=== PATIENT | male | born 1990 | race Caucasian/White ===

== ENCOUNTER 2016-08-27 19:19 | Emergency (ER) | payer OTHER ==
--- NOTE | ~2016-08-27 | EKG ---
PATIENT: GERARDO GONZALEZ UNIT #: [id number] Ventricular Rate: 121 BPM Atrial Rate: 121 BPM P-R Interval: 126 ms QRS Duration: 80 ms Q-T Interval: 300 ms QTC Calculation(Bezet): 426 ms P [place]: 27 degrees Calculated R [place]: -10 degrees Calculated T [place]: 29 degrees Diagnosis Line: Sinus tachycardia Diagnosis Line: Otherwise normal ECG Diagnosis Line: No previous ECGs available Diagnosis Line: Confirmed by NOMAN LOVE MD ([id number]) on 08/28/2016 Diagnosis Line: 4:39:36 PM INTERPRETING MD: KATE JIN
[2016-08-27 19:41] LABS: BASOPHIL% 0.6 % (0-2.5); EOSINOPHIL# 0.1 X10e3 (0-0.7); EOSINOPHIL% 1.8 % (0.0-7.0); HEMATOCRIT 48.7 % (38.0-50.0); HEMOGLOBIN 16.7 gm/dL (13.0-16.0); LYMPHOCYTE# 1.5 X10e3 (1.0-3.5); LYMPHOCYTE% 18.4 % (17.0-45.0); MEAN CELL VOLUME 90.1 FL (83-96); MEAN CORPUSCULAR HEMOGLOBIN 30.8 PG (28-34); MEAN CORPUSCULAR HGB CONC 34.2 g/dL (30-36); MEAN PLATELET VOLUME 8.3 FL (6.5-11.5); MONOCYTE# 0.5 X10e3 (0-1.0); MONOCYTE% 6.3 % (3.0-12.0); NEUTROPHIL# 5.9 X10e3 (1.5-7.1); NEUTROPHIL% 72.9 % (40-75); PLATELET COUNT 199 X10e3 (140-420); RED BLOOD COUNT 5.41 X10e (3.90-5.60); RED CELL DISTRIBUTION WIDTH 13.6 % (11.0-15.5); WHITE BLOOD COUNT 8.1 X10e3 (4.0-10.5)
[2016-08-27 19:42] LABS: DIFF IND NO
[2016-08-27 19:53] LABS: ALBUMIN SERUM 4.1 g/dL (3.5-5.0); BILIRUBIN, DIRECT 0.1 mg/dL (0.0-0.2); BILIRUBIN,INDIRECT 0.9 mg/dL (0.0-0.9); BUN/CREATININE RATIO 9.16; CALCIUM SERUM 8.9 mg/dL (8.4-10.2); CREATININE SERUM 1.2 mg/dL (0.6-1.4); GLOM FILT RATE Estimated 82.4 mL/min (>60); POTASSIUM 4.1 mmol/L (3.5-5.1); PROTEIN TOTAL SERUM 6.8 g/dL (6.0-8.3)
[2016-08-27 20:34] LABS: URINE SOURCE CLEAN CATCH
[2016-08-27 20:40] LABS: URINE APPEARANCE CLEAR; URINE BILIRUBIN NEG (NEG); URINE BLOOD TRACE (NEG); URINE COLOR YELLOW; URINE GLUCOSE NEG (NEG); URINE KETONE TRACE (NEG); URINE LEUKOCYTE ESTERASE NEG (NEG); URINE NITRATE NEG (NEG); URINE PROTEIN 1+ (NEG); URINE SPECIFIC GRAVITY 1.019 (1.003-1.035); URINE UROBILINOGEN 0.2 MG/DL (NEG)
[2016-08-27 20:44] LABS: URBCS1 AUWI 0-2 /[HPF] (0-2); URINE BACTERIA AUWI NEG (NEGATIVE); URINE SQUAMOUS EPITHELIAL CELL NONE SEEN /[HPF]; UWBCS1 AUWI 0-2 (0-5)
[2016-08-27 20:46] LABS: CULTURE INDICATED? NO
[2016-08-27 20:47] LABS: AMPHETAMINE NEG (NEG); BARBITURATES NEG (NEG); BENZODIAZEPINES NEG (NEG); COCAINE NEG (NEG); MARIJUANA NEG (NEG); OPIATES NEG (NEG); TRICYCLIC ANTIDEPRESSANTS NEG (NEG); U METHADONE NEG (NEG)
[2017-02-14] MEDS ORDERED: ALBUTEROL2.5 MG/3 M (08:33)
== END 2016-08-27 21:32 | disposition home or self-care (01) ==
LOC: CED 19:19
PROVIDERS: Emergency Medicine
DX: G40.909 Epilepsy, unspecified, not intractable, without status epilepticus (principal); Z90.49 Acquired absence of other specified parts of digestive tract; Z88.8 Allergy status to other drugs, medicaments and biological substances; Z88.5 Allergy status to narcotic agent
CPT/HCPCS: 36415; 80048; 80076; 80307; 81003; 82947; 85025; 93005; 99284

== ENCOUNTER 2016-10-11 22:16 | Emergency (ER) | payer SELFPAY ==
[2016-10-11] MEDS ORDERED: KEPPRA500 M2 PO (22:25)
[2016-10-11] MEDS ORDERED: KLONOPIN1 MG PO (22:26)
[2016-10-11] MEDS ORDERED: ALBUTEROL17 GM (22:26)
[2017-02-14] MEDS ORDERED: ALBUTEROL2.5 MG/3 M (08:33)
== END 2016-10-11 22:53 | disposition home or self-care (01) ==
LOC: SED 22:16
DX: H66.92 Otitis media, unspecified, left ear (principal); Z88.5 Allergy status to narcotic agent; Z88.8 Allergy status to other drugs, medicaments and biological substances; Z79.899 Other long term (current) drug therapy
CPT/HCPCS: 99283

== ENCOUNTER 2016-10-15 00:17 | Emergency (ER) | payer SELFPAY ==
[~2016-10-15 00:17] MED LIST: ALBUTEROL17 GM; KEPPRA500 M2 PO; KLONOPIN1 MG PO
[2017-02-14] MEDS ORDERED: ALBUTEROL2.5 MG/3 M (08:33)
== END 2016-10-15 02:14 | disposition home or self-care (01) ==
LOC: SED 00:17
DX: H66.92 Otitis media, unspecified, left ear (principal); J45.909 Unspecified asthma, uncomplicated; Z88.5 Allergy status to narcotic agent; Z88.8 Allergy status to other drugs, medicaments and biological substances; Z79.899 Other long term (current) drug therapy
CPT/HCPCS: 99282

== ENCOUNTER 2016-11-18 01:10 | Emergency (ER) | payer OTHER ==
[2017-02-14] MEDS ORDERED: ALBUTEROL2.5 MG/3 M (08:33)
== END 2016-11-18 02:02 | disposition home or self-care (01) ==
LOC: CED 01:10
DX: J45.909 Unspecified asthma, uncomplicated (principal); Z76.0 Encounter for issue of repeat prescription
CPT/HCPCS: 99284

== ENCOUNTER 2016-12-26 22:55 | Emergency (ER) | payer SELFPAY ==
[~2016-12-26] VITALS: Ht 180.3 cm; Wt 106.6 kg
[2017-02-14] MEDS ORDERED: ALBUTEROL2.5 MG/3 M (08:33)
== END 2016-12-27 00:07 | disposition home or self-care (01) ==
LOC: SED 22:55
DX: J45.901 Unspecified asthma with (acute) exacerbation (principal); Z88.5 Allergy status to narcotic agent; Z88.8 Allergy status to other drugs, medicaments and biological substances; Z79.899 Other long term (current) drug therapy
CPT/HCPCS: 94640; 99284